=== PATIENT | male | born 1970 | race Caucasian/White ===

== ENCOUNTER 2025-01-29 18:56 | Observation (INO) ==
[2025-01-29 19:52] LABS: Basophils #(Absolute) Auto 0.1 (0.0-0.1); Basophils%(Percent) Auto 0.8 (0.0-1.3); Eosinophils#(Absolute)Auto 0.5 (0.0-0.3); Eosinophils%(Percent) Auto 5.1 % (0.0-4.0); Granulocytes % - Auto 58.6 % (49.1-73.1); Granulocytes#(Absolute)- Auto 5.9 (2.0-6.2); Hematocrit 38.3 % (41.3-50.1); Mean Corpuscular Volume 86.7 fl (81.9-96.5); Monocytes #(Absolute)- Auto 1.1 (0.2-0.8); Monocytes %(Percent)- Auto 11.4 % (4.5-10.7); Platelet Count 255 K/uL (142-355)
[2025-01-29 20:04] LABS: Potassium 5.1 mmol/L (3.6-5.2)
--- NOTE | 2025-01-29 20:28 | Emergency Department Note ---
HPI - Wound/Laceration General Chief Complaint: Wound/Laceration Stated Complaint: PAIN IN RIGHT FOOT Time Seen by Provider: 01/29/25 19:02 Source: patient Mode of arrival: walk-in Limitations: no limitations History of Present Illness HPI narrative: 54-year-old male approximately 1 week history of continued blister/open wound to the right foot. Patient was seen at the [facility] emergency department last week. He completed a workup and was ultimately discharged home on Bactrim DS + Keflex. Patient states he has been compliant with his medications. Patient is concerned with increased redness and swelling in and around the ulceration. Patient is a nondiabetic Extremity Location: Right: foot Place: Reports home Patient tetanus UTD: Yes Associated symptoms: Reports pain Related Data Home Medications Medication Instructions Recorded Confirmed acetaminophen 500 mg tablet 2,000 mg PO .0 PRN pain 07/03/24 07/03/24 acetaminophen 650 mg 650 mg PO DAILY PRN pain 07/03/24 07/03/24 tablet,extended release (Tylenol Arthritis Pain) aspirin 81 mg tablet 81 mg PO DAILY 07/03/24 07/03/24 carvedilol 25 mg tablet 25 mg PO Q12H 07/03/24 07/03/24 gemfibrozil 600 mg tablet 600 mg PO DAILY 07/03/24 07/03/24 ibuprofen 100 mg tablet 800 mg PO .0 PRN pain 07/03/24 07/03/24 losartan 100 mg tablet 100 mg PO DAILY 07/03/24 07/03/24 meloxicam 15 mg tablet 15 mg PO DAILY 07/03/24 07/03/24 metformin 500 mg tablet 500 mg PO BID 07/03/24 07/03/24 pantoprazole 40 mg tablet,delayed 40 mg PO QDAC 07/03/24 07/03/24 release potassium 07/03/24 spironolactone 50 mg tablet 50 mg PO BID 07/03/24 07/03/24 Allergies Allergy/AdvReac Type Severity Reaction Status Date / Time No Known Drug Allergies Allergy Verified 01/29/25 19:17 Review of Systems Status of ROS 10 or more systems reviewed and unremark able except as noted in history and below [facility] Medical History Atrial fibrillation Chest pain Biceps rupture, distal Hx of cardiac arrhythmia Hx of bronchitis Hx of renal calculi History of seizures as a child GERD (gastroesophageal reflux disease) DM (diabetes mellitus) HLD (hyperlipidemia) HTN (hypertension) Surgical History Hx of removal of cyst Hx of colonoscopy Hx of cardiac cath Hx of appendectomy Hx of repair of right rotator cuff S/P left knee arthroscopy Social History Smoking status: never smoker Problems where you live: no known problems Highest level of school completed/degree received: high school Feel stressed/tense/nervous/anxious/difficulty sleeping: not at all Gender Identity: male Exam Constitutional: normal general appearance and no apparent distress Vital Signs - 24 hr 01/29/25 19:05 01/29/25 19:05 Temperature 97.7 F Pulse Rate 73 Respiratory Rate 20 Blood Pressure 118/60 Pulse Oximetry 98 98 Oxygen Delivery Me thod Room Air Room Air HENMT: normocephalic and head/scalp atraumatic Eyes: PERRL and conjunctivae normal Neck/C-Spine: visual inspection normal, trachea midline and supple Lymph: no lymphadenopathy noted Chest: inspection of chest normal Respiratory: breath sounds equal bilaterally, normal respiratory effort, clear to auscultation bilaterally, no wheezes and no rales Cardiovascular: normal heart rate noted, regular rhythm noted, no gallop, no rub and no murmur Gastrointestinal: abdomen normal to inspection, abdomen soft to palpation and nontender to palpation Genitourinary: no CVA tenderness Back/Pelvis: spine normal to inspection Extremities: RIGHT FOOT: 4 cm erythematous ulceration at the lateral aspect of the base of the little toe. This extends to the plantar surface. Mild tenderness on palpation. 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 Consultations Consultation #1: Alyse, Case Management, clear to admit / observation Vital Signs Vital signs: Vital Signs Temperature 97.7 F 01/29/25 19:05 Pulse Rate 73 01/29/25 19:05 Respiratory Rate 20 01/29/25 19:05 Blood Pressure 118/60 04/17/25 19:05 Pulse Oximetry 98 01/29/25 19:05 Oxygen Delivery Method Room Air 01/29/25 19:05 Temperature 97.7 F 01/29/25 19:05 Pulse Rate 73 01/29/25 19:05 Respiratory Rate 20 01/29/25 19:05 Blood Pressure 118/60 01/29/25 19:05 Pulse Oximetry 98 01/29/25 19:05 Oxygen Delivery Method Room Air 01/29/25 19:05 MDM - Wound/Laceration MDM Narrative Medical decision making narrative: History and physical exam consistent with likely diabetic ulcer of the right foot. This is a new diagnosis for this patient. Patient currently on outpatient therapy to include Bactrim DS and Keflex with no improvement in his symptoms. Patient contacted primary care provider and was sent to the ER for further evaluation and subsequent admission. Vital signs stable, foot ulceration of the right foot consistent with diabetic ulceration. Labs as annotated. X-rays negative for findings of soft tissue foreign body and/or osteomyelitis. All results discussed with patient and spouse bedside in ED. Plan is to admit patient. Differential Diagnosis Differential diagnosis: Likely laceration, abscess, abrasion, avulsion of skin and other (Osteomyelitis, Vascular insufficiency ) Medical Records Attestation: I reviewed the patient's medical records. Lab Data Attestation: I reviewed the patient's lab results. Labs: Lab Results 01/29/25 Range/Units 19:40 WBC 10.0 H (3.7-9.6) K/uL RBC 4.4 (4.40-5.80) M/uL Hgb 12.7 L (14.0-17.4) gm/dL Hct 38.3 L (41.3-50.1) % MCV 86.7 (81.9-96.5) fl MCH 28.7 (27.6-33.7) pg MCHC 33.2 (33.0-35.7) g/dl RDW 15.3 H (11.0-14.8) % Plt Count 255 (142-355) K/uL MPV 7.1 (6.0-10.4) fl Gran % 58.6 (49.1-73.1) % Lymph % (Auto) 24.1 (17.6-39.05) % [place] % (Auto) 11.4 H (4.5-10.7) % Eos % (Auto) 5.1 H (0.0-4.0) % Baso % (Auto) 0.8 (0.0-1.3) Lymph # (Auto) 2.4 (0.8-2.9) [place] # (Auto) 1.1 H (0.2-0.8) Eos # (Auto) 0.5 H (0.0-0.3) Baso # (Auto) 0.1 (0.0-0.1) Absolute Gran (auto) 5.9 (2.0-6.2) Sodium 138 (136-145) mmol/L Potassium 5.1 (3.6-5.2) mmol/L Chloride 104.0 (98-107) mmol/L Carbon Dioxide 23 (21-32) mmol/L Anion Gap 11.0 (4-14) mEq/L BUN 35 H (7-18) mg/dL Creatinine 1.8 H (0.6-1.3) mg/dL Estimated GFR 43.6 (>59.9) Glucose 124 H (70-110) mg/dL Calcium 9.2 (8.5-10.1) mg/dL Total Bilirubin 0.21 (0.0-1.0) mg/dL AST 12 L (15-37) U/L ALT 18 L (30-65) U/L Alkaline Phosphatase 70 (50-136) U/L C-Reactive Protein 0.300 (0.050-0.300) mg/dL Total Protein 7.3 (6.4-8.2) g/dL Albumin 3.4 (3.4-5.0) g/dL Imaging Data Imaging ordered: other (RAD RIGHT FOOT ) Attestation: I have reviewed the pertinent imaging results. My impression: nothing acute Discharge Plan Discharge Patient Disposition: Admitted As Observation Condition: Improved Chief Complaint: Wound/Laceration Clinical Impression: Diabetic foot ulcer, Cellulitis Prescriptions: No Action carvedilol 25 mg tablet 25 mg PO Q12H Patient Comments: TAKE ONE TABLET BY MOUTH TWICE DAILY Rx Instructions: PATIENT RAN OUT MEDICATION 3 WEEKS AGO gemfibrozil 600 mg tablet 600 mg PO DAILY Patient Comments: TAKE ONE TABLET BY MOUTH TWICE DAILY losartan 100 mg tablet 100 mg PO DAILY Patient Comments: TAKE ONE TABLET BY MOUTH EVERY DAY Rx Instructions: PATIENT RAN OUT OF MEDICATION 3 WEEKS AGO meloxicam 15 mg tablet 15 mg PO DAILY Patient Comments: TAKE ONE TABLET BY MOUTH EVERY DAY metformin 500 mg tablet 500 mg PO BID Patient Comments: TAKE ONE TABLET BY MOUTH TWICE DAILY pantoprazole 40 mg tablet,delayed release (DR/EC) 40 mg PO QDAC Patient Comments: TAKE ONE TABLET BY MOUTH EVERY DAY spironolactone 50 mg tablet 50 mg PO BID Patient Comments: TAKE ONE TABLET BY MOUTH TWICE DAILY aspirin 81 mg tablet 81 mg PO DAILY potassium acetaminophen [Tylenol Arthritis Pain] 650 mg tablet extended release 650 mg PO DAILY PRN (Reason: pain) acetaminophen 500 mg tablet 2,000 mg PO .0 PRN (Reason: pain) Rx Instructions: TAKES NEEDED FOR PAIN ROTATING THE MOTRIN ibuprofen 100 mg tablet 800 mg PO .0 PRN (Reason: pain) Print Language: Macedonian Referrals: Adriane Watts [Primary Care Provider] - Time of Disposition: 21:13
[2025-01-29] MEDS ORDERED: ONDANSETRON HCL/PF 4 MG/2 ML VIAL INJ PRN (21:02)
[2025-01-29] MEDS ORDERED: HYDROCODONE/ACETAMINOPHEN 5/325 MG TABLET PO PRN (21:02)
[2025-01-29] MEDS ORDERED: ACETAMINOPHEN 325 MG TABLET PO PRN (21:02)
[2025-01-29] MEDS ORDERED: MORPHINE SULFATE 2 MG/ML CARTRIDGE IV PRN (21:02)
[2025-01-29] MEDS: carvediloL 25 MG TABLET PO SCH (21:22)
[2025-01-29] MEDS: CLINDAMYCIN PHOSPHATE/D5W 900 MG/50 ML PIGGYBACK IV ONE (22:15)
[2025-01-30 06:45] LABS: Basophils #(Absolute) Auto 0.1 (0.0-0.1); Basophils%(Percent) Auto 0.8 (0.0-1.3); Eosinophils#(Absolute)Auto 0.4 (0.0-0.3); Eosinophils%(Percent) Auto 4.8 % (0.0-4.0); Granulocytes % - Auto 59.2 % (49.1-73.1); Granulocytes#(Absolute)- Auto 4.9 (2.0-6.2); Hematocrit 36.9 % (41.3-50.1); Mean Corpuscular Volume 86.8 fl (81.9-96.5); Monocytes %(Percent)- Auto 12.2 % (4.5-10.7); Platelet Count 228 K/uL (142-355); White Blood Count 8.3 K/uL (3.7-9.6)
[2025-01-30 06:54] LABS: Potassium 4.9 mmol/L (3.6-5.2)
[2025-01-30] MEDS: METFORMIN HCL 500 MG TABLET PO SCH (07:09)
[2025-01-30] MEDS: PANTOPRAZOLE SODIUM 40 MG TABLET.DR PO SCH (07:09)
[2025-01-30 07:54] VITALS: RESP 19
[2025-01-30] MEDS: CLINDAMYCIN PHOSPHATE/D5W 900 MG/50 ML PIGGYBACK IV SCH (08:01)
[2025-01-30] MEDS: MELOXICAM 7.5 MG TABLET PO SCH (08:01)
[2025-01-30] MEDS: SPIRONOLACTONE 50 MG TABLET PO SCH (08:02)
[2025-01-30] MEDS: LOSARTAN POTASSIUM 50 MG TABLET PO SCH (08:02)
[2025-01-30] MEDS: ASPIRIN 81 MG TABLET.DR PO SCH (08:02)
[2025-01-30] MEDS: gemfibroziL 600 MG TABLET PO SCH (08:02)
[2025-01-30] MEDS ORDERED: CLINDAMYCIN PHOSPHATE/D5W 900 MG/50 ML PIGGYBACK IV SCH (09:00)
[2025-01-30 12:20] VITALS: BP 133/72; PULSE 57; TEMP 97.8
--- NOTE | 2025-01-30 13:36 | Discharge Summary ---
DS: Providers Provider Date of admission: 01/29/25 21:02 Primary care physician: Adriane Watts Attending physician on discharge: More Kuhn Discharging clinician: More Kuhn Anticipated date of discharge: 01/30/25 DS: Diagnosis Discharge Diagnosis (1) Wound of right foot: (2) DM (diabetes mellitus): Qualifiers: Diabetes mellitus type: type 2 Diabetes mellitus long term care pharmacist insulin use: with long term care pharmacist use Diabetes mellitus complication status: with hyperglycemia Qualified Code(s): E11.65 - Type 2 diabetes mellitus with hyperglycemia; Z79.4 - assisted (current) use of insulin (3) HLD (hyperlipidemia): Qualifiers: Hyperlipidemia type: unspecified Qualified Code(s): E78.5 - Hyperlipidemia, unspecified (4) HTN (hypertension): Qualifiers: Hypertension type: primary hypertension Qualified Code(s): I10 - Essential (primary) hypertension Plan Discharge home to complete oral Bactrim and Keflex. Follow up with PCP as scheduled on Sunday. Call [facility] Sunday to schedule an appointment. DS: Summary Hospital Course Hospital Course: VS stable, pending labs and rad results Plan is to admit for continued therapy and wound care. Status at Discharge Overall status at discharge: patient is progressing back to baseline Time Spent with Patient Time attestation: Total time spent providing and/or coordinating discharge services: Exam Constitutional: normal general appearance, no apparent distress, average body habitus and no limitations Vital Signs - 24 hr 01/29/25 19:05 01/29/25 19:05 01/29/25 19:30 Temperature 97.7 F Pulse Rate 73 75 Pulse Rate [Bilate ral] Respiratory Rate 20 22 Blood Pressure 118/60 111/68 Blood Pressure [Ri ght Arm] Pulse Oximetry 98 98 97 Oxygen Delivery Me thod Room Air Room Air Room Air 01/29/25 20:30 01/29/25 21:22 01/29/25 21:23 Temperature Pulse Rate 65 56 L Pulse Rate [Bilate ral] Respiratory Rate 20 18 Blood Pressure 124/71 124/61 Blood Pressure [Ri ght Arm] Pulse Oximetry 98 98 Oxygen Delivery Me thod Room Air Room Air 01/29/25 21:30 01/29/25 22:30 01/29/25 22:30 Temperature 98.0 F Pulse Rate 58 L 66 66 Pulse Rate [Bilate ral] Respiratory Rate 22 20 22 Blood Pressure 139/72 141/86 141/86 Blood Pressure [Ri ght Arm] Pulse Oximetry 98 97 98 Oxygen Delivery Me thod Room Air Room Air 01/29/25 23:20 01/30/25 03:57 01/30/25 07:52 Temperature 98.0 F 97.8 F 97.6 F Pulse Rate Pulse Rate [Bilate ral] 69 53 L 63 Respiratory Rate 22 23 19 Blood Pressure Blood Pressure [Ri ght Arm] 159/88 109/67 129/73 Pulse Oximetry 98 100 97 Oxygen Delivery Me thod Room Air Room Air Room Air 01/30/25 12:00 01/30/25 13:00 Temperature 97.8 F 97.8 F Pulse Rate Pulse Rate [Bilate ral] 57 L 57 L Respiratory Rate 19 19 Blood Pressure Blood Pressure [Ri ght Arm] 133/72 133/72 Pulse Oximetry 97 97 Oxygen Delivery Me thod Room Air Room Air HENMT: normocephalic, head/scalp atraumatic and external nose normal Eyes: EOMs intact bilaterally, conjunctivae normal and no scleral icterus Neck/C-Spine: visual inspection normal and trachea midline Lymph: no lymphadenopathy noted and no lymphedema noted Chest: inspection of chest normal Respiratory: breath sounds equal bilaterally, normal respiratory effort, clear to auscultation bilaterally, no rales, no retractions and no use of accessory muscles Cardiovascular: normal heart rate noted, no gallop, no rub, no murmur and no JVD Gastrointestinal: abdomen normal to inspection, abdomen soft to palpation and normoactive bowel sounds Genitourinary: deferred Back/Pelvis: spine normal to inspection and no thoracic spine tenderness Extremities: normal to inspection, normal to palpation, no tenderness, full ROM and no joint enlargement 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 No erythema, edema, exudate or malodor. DS: Data Data Completed and Pending Labs on day of discharge: Labs from last 24 hours 01/30/25 01/29/25 06:15 19:40 WBC 8.3 10.0 H RBC 4.3 L 4.4 Hgb 12.3 L 12.7 L Hct 36.9 L 38.3 L MCV 86.8 86.7 MCH 28.9 28.7 MCHC 33.3 33.2 RDW 15.2 H 15.3 H Plt Count 228 255 MPV 7.9 7.1 Gran % 59.2 58.6 Lymph % (Auto) 23.0 24.1 [place] % (Auto) 12.2 H 11.4 H Eos % (Auto) 4.8 H 5.1 H Baso % (Auto) 0.8 0.8 Lymph # (Auto) 1.9 2.4 [place] # (Auto) 1.0 H 1.1 H Eos # (Auto) 0.4 H 0.5 H Baso # (Auto) 0.1 0.1 Absolute Gran (auto) 4.9 5.9 Sodium 138 138 Potassium 4.9 5.1 Chloride 106.0 104.0 Carbon Dioxide 24 23 Anion Gap 8.0 11.0 BUN 36 H 35 H Creatinine 1.6 H 1.8 H Estimated GFR 50.3 43.6 Glucose 115 H 124 H Calcium 8.8 9.2 Phosphorus 4.6 Magnesium 1.7 L Total Bilirubin 0.22 0.21 AST 15 12 L ALT 18 L 18 L Alkaline Phosphatase 59 70 C-Reactive Protein 0.300 Total Protein 6.7 7.3 Albumin 3.0 L 3.4 Discharge Plan Discharge Disposition: Home, Self-Care Condition: Stable Discharge Medications: Continued carvedilol 25 mg tablet 25 mg PO Q12H Patient Comments: TAKE ONE TABLET BY MOUTH TWICE DAILY gemfibrozil 600 mg tablet 600 mg PO DAILY Patient Comments: TAKE ONE TABLET BY MOUTH TWICE DAILY losartan 100 mg tablet 100 mg PO DAILY Patient Comments: TAKE ONE TABLET BY MOUTH EVERY DAY meloxicam 15 mg tablet 15 mg PO DAILY Patient Comments: TAKE ONE TABLET BY MOUTH EVERY DAY metformin 500 mg tablet 500 mg PO BID Patient Comments: TAKE ONE TABLET BY MOUTH TWICE DAILY pantoprazole 40 mg tablet,delayed release (DR/EC) 40 mg PO QDAC Patient Comments: TAKE ONE TABLET BY MOUTH EVERY DAY spironolactone 50 mg tablet 50 mg PO BID Patient Comments: TAKE ONE TABLET BY MOUTH TWICE DAILY aspirin 81 mg tablet 81 mg PO DAILY potassium acetaminophen [Tylenol Arthritis Pain] 650 mg tablet extended release 650 mg PO DAILY PRN (Reason: pain) acetaminophen 500 mg tablet 2,000 mg PO .0 PRN (Reason: pain) Rx Instructions: TAKES NEEDED FOR PAIN ROTATING THE MOTRIN ibuprofen 100 mg tablet 800 mg PO .0 PRN (Reason: pain) Eliquis 5 mg tablet 5 mg PO BID Patient Comments: TAKE ONE TABLET BY MOUTH TWICE DAILY FOR AFIB glipizide 5 mg tablet 10 mg PO BID Patient Comments: Take TWO tablets BY MOUTH EVERY MORNING AND ONE tablet BY MOUTH in THE evening] Discharge Orders: Discharge Order (Routine); Ordered 01/30/25 Ordered By: More Kuhn Forms: Portal/Health Info Access Inst Follow-Ups: Adriane Watts [Primary Care Provider] -
--- NOTE | 2025-01-30 13:40 | Progress Note ---
Exam Constitutional: Vital Signs - 24 hr 01/29/25 19:05 01/29/25 19:05 01/29/25 19:30 Temperature 97.7 F Pulse Rate 73 75 Pulse Rate [Bilate ral] Respiratory Rate 20 22 Blood Pressure 118/60 111/68 Blood Pressure [Ri ght Arm] Pulse Oximetry 98 98 97 Oxygen Delivery Me thod Room Air Room Air Room Air 01/29/25 20:30 01/29/25 21:22 01/29/25 21:23 Temperature Pulse Rate 65 56 L Pulse Rate [Bilate ral] Respiratory Rate 20 18 Blood Pressure 124/71 124/61 Blood Pressure [Ri ght Arm] Pulse Oximetry 98 98 Oxygen Delivery Me thod Room Air Room Air 01/29/25 21:30 01/29/25 22:30 01/29/25 22:30 Temperature 98.0 F Pulse Rate 58 L 66 66 Pulse Rate [Bilate ral] Respiratory Rate 22 20 22 Blood Pressure 139/72 141/86 141/86 Blood Pressure [Ri ght Arm] Pulse Oximetry 98 97 98 Oxygen Delivery La thod Room Air Room Air 01/29/25 23:20 01/30/25 03:57 01/30/25 07:52 Temperature 98.0 F 97.8 F 97.6 F Pulse Rate Pulse Rate [Bilate ral] 69 53 L 63 Respiratory Rate 22 23 19 Blood Pressure Blood Pressure [Ri ght Arm] 159/88 109/67 129/73 Pulse Oximetry 98 100 97 Oxygen Delivery Me thod Room Air Room Air Room Air Progress Note: Objective Labs Labs: CBC 01/29/25 01/30/25 Range/Units 19:40 06:15 WBC 10.0 H 8.3 (3.7-9.6) K/uL RBC 4.4 4.3 L (4.40-5.80) M/uL Hgb 12.7 L 12.3 L (14.0-17.4) gm/dL Hct 38.3 L 36.9 L (41.3-50.1) % Plt Count 255 228 (142-355) K/uL Gran % 58.6 59.2 (49.1-73.1) % Lymph % (Auto) 24.1 23.0 (17.6-39.05) % [place] % (Auto) 11.4 H 12.2 H (4.5-10.7) % Eos % (Auto) 5.1 H 4.8 H (0.0-4.0) % Baso % (Auto) 0.8 0.8 (0.0-1.3) Lymph # (Auto) 2.4 1.9 (0.8-2.9) [place] # (Auto) 1.1 H 1.0 H (0.2-0.8) Eos # (Auto) 0.5 H 0.4 H (0.0-0.3) Baso # (Auto) 0.1 0.1 (0.0-0.1) Absolute Gran (auto) 5.9 4.9 (2.0-6.2) CMP 01/29/25 01/30/25 19:40 06:15 Sodium 138 138 Potassium 5.1 4.9 Chloride 104.0 106.0 Carbon Dioxide 23 24 BUN 35 H 36 H Creatinine 1.8 H 1.6 H Glucose 124 H 115 H Calcium 9.2 8.8 Liver Function 01/29/25 01/30/25 Range/Units 19:40 06:15 Total Bilirubin 0.21 0.22 (0.0-1.0) mg/dL AST 12 L 15 (15-37) U/L ALT 18 L 18 L (30-65) U/L Alkaline Phosphatase 70 59 (50-136) U/L Albumin 3.4 3.0 L (3.4-5.0) g/dL Progress Note: A&P Fall Risk Details Hernandez Fall Scale Risk Level: Low Fall Risk Current Medications: Current Medications Acetaminophen (Acetaminophen 325 Mg Tablet) 650 mg PO Q4H PRN PRN Reason: Pain Hydrocodone Bitart/Acetaminophen (Hydrocodone/Acetaminophen 5/325 Mg Tablet) 1 each PO Q4H PRN PRN Reason: Pain Aspirin (Aspirin 81 Mg Tablet.) 81 mg PO DAILY [facility] Last Admin: 01/30/25 08:02 Dose: 81 mg Carvedilol (Carvedilol 25 Mg Tablet) 25 mg PO Q12H [facility] Last Admin: 01/30/25 09:34 Dose: 25 mg Gemfibrozil (Gemfibrozil 600 Mg Tablet) 600 mg PO DAILY [facility] Last Admin: 01/30/25 08:02 Dose: 600 mg Clindamycin Phosphate/Dextrose (Clindamycin Phosphate/D5w) 900 mg in 50 mls @ 50 mls/hr IV BID [facility] Last Infusion: 01/30/25 09:01 Dose: Infused Losartan Potassium (Losartan Potassium 50 Mg Tablet) 100 mg PO DAILY [facility] Last Admin: 01/30/25 08:02 Dose: 100 mg Meloxicam (Meloxicam 7.5 Mg Tablet) 15 mg PO DAILY [facility] Last Admin: 01/30/25 08:01 Dose: 15 mg Metformin HCl (Metformin Hcl 500 Mg Tablet) 500 mg PO BIDWM [facility] Last Admin: 01/30/25 07:09 Dose: 500 mg Morphine Sulfate (Morphine Sulfate 2 Mg/Ml Cartridge) 2 mg IV Q4H PRN PRN Reason: Pain Ondansetron HCl (Ondansetron Hcl/Pf 4 Mg/2 Ml Vial) 4 mg INJ Q6H PRN PRN Reason: Nausea And Vomiting Pantoprazole Sodium (Pantoprazole Sodium 40 Mg Tablet.) 40 mg PO QDAC [facility] Last Admin: 01/30/25 07:09 Dose: 40 mg Spironolactone (Spironolactone 50 Mg Tablet) 50 mg PO BID [facility] Last Admin: 01/30/25 08:02 Dose: 50 mg Time Spent With Patient Time: Total time spent is greater than 50% in coordination of care (as documented) at patient's floor/unit and/or counseling patient:
--- NOTE | 2025-01-31 16:15 | Short Stay Summary ---
H&P: HPI History of Present Illness Chief complaint: DIABETIC FOOT ULCERATION WITH CELLULITIS Narrative: 54 year old male admitted to observation for 1 week history of open blister right foot. Hx of DM. Was seen in [facility] ER last week. Was discharged home on Bactrim and Keflex. Admits compliance with medication. He was concerned about increased redness and swelling and contacted PCP's [employer]AFF ACCOUNTANT who instructed him to follow up with ER. Patient was under impression she would come today to debride but it is confirmed that she will not. He has tried to obtain care at wound care centers in past but no accepted due to his insurance. Review of Systems Status of ROS 10 or more systems reviewed and unremark able except as noted in history and below PFSH PFS Medical History Atrial fibrillation Chest pain Biceps rupture, distal Hx of cardiac arrhythmia Hx of bronchitis Hx of renal calculi History of seizures as a child GERD (gastroesophageal reflux disease) DM (diabetes mellitus) HLD (hyperlipidemia) HTN (hypertension) Surgical History Hx of removal of cyst Hx of colonoscopy Hx of cardiac cath Hx of appendectomy Hx of repair of right rotator cuff S/P left knee arthroscopy Social History Smoking status: never smoker Problems where you live: no known problems Highest level of school completed/degree received: high school Feel stressed/tense/nervous/anxious/difficulty sleeping: not at all Gender Identity: male Meds Home Medications and Allergies Home Medications Medication Instructions Recorded Confirmed Type acetaminophen 500 mg tablet 2,000 mg PO .0 PRN pain 07/03/24 01/29/25 History acetaminophen 650 mg 650 mg PO DAILY PRN pain 07/03/24 01/29/25 History tablet,extended release (Tylenol Arthritis Pain) aspirin 81 mg tablet 81 mg PO DAILY 07/03/24 01/29/25 History carvedilol 25 mg tablet 25 mg PO Q12H 07/03/24 01/29/25 History gemfibrozil 600 mg tablet 600 mg PO DAILY 07/03/24 01/29/25 History ibuprofen 100 mg tablet 800 mg PO .0 PRN pain 07/03/24 01/29/25 History losartan 100 mg tablet 100 mg PO DAILY 07/03/24 01/29/25 History meloxicam 15 mg tablet 15 mg PO DAILY 07/03/24 01/29/25 History metformin 500 mg tablet 500 mg PO BID 07/03/24 01/29/25 History pantoprazole 40 mg tablet,delayed 40 mg PO QDAC 07/03/24 01/29/25 History release potassium 07/03/24 History spironolactone 50 mg tablet 50 mg PO BID 07/03/24 01/29/25 History apixaban 5 mg tablet (Eliquis) 5 mg PO BID 01/29/25 01/29/25 History glipizide 5 mg tablet 10 mg PO BID 01/29/25 01/29/25 History Allergies Allergy/AdvReac Type Severity Reaction Status Date / Time No Known Drug Allergies Allergy Verified 01/29/25 19:17 Exam Constitutional: normal general appearance, no apparent distress, average body habitus and no limitations Vital Signs - 24 hr 01/29/25 19:05 01/29/25 19:05 01/29/25 19:30 Temperature 97.7 F Pulse Rate 73 75 Pulse Rate [Bilate ral] Respiratory Rate 20 22 Blood Pressure 118/60 111/68 Blood Pressure [Ri ght Arm] Pulse Oximetry 98 98 97 Oxygen Delivery [facility] Room Air Room Air Room Air 01/29/25 20:30 01/29/25 21:22 01/29/25 21:23 Temperature Pulse Rate 65 56 L Pulse Rate [Bilate ral] Respiratory Rate 20 18 Blood Pressure 124/71 124/61 Blood Pressure [Ri ght Arm] Pulse Oximetry 98 98 Oxygen Delivery [facility] Room Air Room Air 01/29/25 21:30 01/29/25 22:30 01/29/25 22:30 Temperature 98.0 F Pulse Rate 58 L 66 66 Pulse Rate [Bilate ral] Respiratory Rate 22 20 22 Blood Pressure 139/72 141/86 141/86 Blood Pressure [Ri ght Arm] Pulse Oximetry 98 97 98 Oxygen Delivery [facility] Room Air Room Air 01/29/25 23:20 01/30/25 03:57 01/30/25 07:52 Temperature 98.0 F 97.8 F 97.6 F Pulse Rate Pulse Rate [Bilate ral] 69 53 L 63 Respiratory Rate 22 23 19 Blood Pressure Blood Pressure [Ri ght Arm] 159/88 109/67 129/73 Pulse Oximetry 98 100 97 Oxygen Delivery Me thod Room Air Room Air Room Air HENMT: normocephalic, head/scalp atraumatic and external nose normal Eyes: PERRL, EOMs intact bilaterally, conjunctivae normal and no scleral icterus Neck/C-Spine: visual inspection normal, trachea midline and supple Lymph: no lymphadenopathy noted and no lymphedema noted Chest: inspection of chest normal Respiratory: breath sounds equal bilaterally, normal respiratory effort, clear to auscultation bilaterally, no wheezes, no rales, no retractions and no use of accessory muscles Cardiovascular: normal heart rate noted, regular rhythm noted, no gallop, no rub, no murmur and no JVD Gastrointestinal: abdomen normal to inspection, abdomen soft to palpation, nontender to palpation and normoactive bowel sounds Genitourinary: no CVA tenderness deferred Back/Pelvis: spine normal to inspection and no thoracic spine tenderness Extremities: normal to inspection, normal to palpation, no tenderness, full ROM and no joint enlargement RIGHT FOOT: 4 cm erythematous ulceration at the lateral aspect of the base of the little toe. This extends to the plantar surface. Mild tenderness on palpation. 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 No erythema, edema, exudate or malodor. 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 [employer] use Diabetes mellitus complication status: with hyperglycemia Qualified Code(s): E11.65 - Type 2 diabetes mellitus with hyperglycemia; Z79.4 - longterm (current) use of insulin Code(s): E11.9 - Type 2 diabetes mellitus without complications (3) HLD (hyperlipidemia): Qualifiers: Hyperlipidemia type: unspecified Qualified Code(s): E78.5 - Hyperlipidemia, unspecified Code(s): E78.5 - Hyperlipidemia, unspecified (4) HTN (hypertension): Qualifiers: Hypertension type: primary hypertension Qualified Code(s): I10 - Essential (primary) hypertension Code(s): I10 - Essential (primary) hypertension Plan Discharge home to complete oral Bactrim and Keflex. Follow up with PCP as scheduled this coming Sunday. Call [facility] Sunday to schedule a visit. DS: Providers Provider Date of admission: 01/29/25 21:02 Primary care physician: Adriane Watts DS: Summary Hospital Course Hospital Course: VS stable, pending labs and rad results Plan is to admit for continued therapy and wound care. Status at Discharge Functional status at discharge: independent ambulation Overall status at discharge: other (was always stable.) Time Spent with Patient Time attestation: Total time spent providing and/or coordinating discharge services: 65 Time spent: greater than 30 minutes Discharge Plan Discharge Disposition: Home, Self-Care Condition: Stable Discharge Medications: Continued carvedilol 25 mg tablet 25 mg PO Q12H Patient Comments: TAKE ONE TABLET BY MOUTH TWICE DAILY gemfibrozil 600 mg tablet 600 mg PO DAILY Patient Comments: TAKE ONE TABLET BY MOUTH TWICE DAILY losartan 100 mg tablet 100 mg PO DAILY Patient Comments: TAKE ONE TABLET BY MOUTH EVERY DAY meloxicam 15 mg tablet 15 mg PO DAILY Patient Comments: TAKE ONE TABLET BY MOUTH EVERY DAY metformin 500 mg tablet 500 mg PO BID Patient Comments: TAKE ONE TABLET BY MOUTH TWICE DAILY pantoprazole 40 mg tablet,delayed release (DR/EC) 40 mg PO QDAC Patient Comments: TAKE ONE TABLET BY MOUTH EVERY DAY spironolactone 50 mg tablet 50 mg PO BID Patient Comments: TAKE ONE TABLET BY MOUTH TWICE DAILY aspirin 81 mg tablet 81 mg PO DAILY potassium acetaminophen [Tylenol Arthritis Pain] 650 mg tablet extended release 650 mg PO DAILY PRN (Reason: pain) acetaminophen 500 mg tablet 2,000 mg PO .0 PRN (Reason: pain) Rx Instructions: TAKES NEEDED FOR PAIN ROTATING THE MOTRIN ibuprofen 100 mg tablet 800 mg PO .0 PRN (Reason: pain) Eliquis 5 mg tablet 5 mg PO BID Patient Comments: TAKE ONE TABLET BY MOUTH TWICE DAILY FOR AFIB glipizide 5 mg tablet 10 mg PO BID Patient Comments: Take TWO tablets BY MOUTH EVERY MORNING AND ONE tablet BY MOUTH in THE evening] Discharge Orders: Discharge Order (Routine); Ordered 01/30/25 Ordered By: More Kuhn Activity: increase activity as tolerated Diet: advance to your usual diet Interventions: Discharge Assessment Last Done: 01/30/25 13:42 MED/SURG & ICU Observation Charge Sheet Last Done: 01/30/25 13:49 Patient Instructions: Diabetes and Your Skin (GEN) Forms: Portal/Health Info Access Inst Follow-Ups: Adriane Watts [Primary Care Provider] - Discharge Date/Time: 01/30/25 14:00
== END 2025-01-30 14:00 | disposition home or self-care (01) ==
LOC: MS 18:56 → ED 18:56 → MS 22:45
PROVIDERS: ADMIT Physician Assistant; ATTEND Family Medicine
DX: Z79.1 Long term (current) use of non-steroidal anti-inflammatories (NSAID); Z79.84 Long term (current) use of oral hypoglycemic drugs; E11.621 Type 2 diabetes mellitus with foot ulcer; E11.65 Type 2 diabetes mellitus with hyperglycemia; L03.115 Cellulitis of right lower limb; L97.519 Non-pressure chronic ulcer of other part of right foot with unspecified severity; M19.071 Primary osteoarthritis, right ankle and foot; Z79.4 Long term (current) use of insulin; Z86.79 Personal history of other diseases of the circulatory system; Z79.82 Long term (current) use of aspirin; I10 Essential (primary) hypertension; Z79.899 Other long term (current) drug therapy; E78.5 Hyperlipidemia, unspecified